=== PATIENT | male | born 1980 | race Caucasian/White ===

== ENCOUNTER 2022-11-13 14:34 | Emergency (ER) | payer OTHER, SELFPAY ==
--- NOTE | 2022-11-13 14:30 | DI.CT_ITS ---
Exam(s) CT HEAD CERVICAL SPINE WO EXAM: CT HEAD CERVICAL SPINE WO CLINICAL HISTORY: fall, pain. TECHNIQUE: Imaging Protocol: Axial computed tomography images with coronal and sagittal reformatted images were created and reviewed COMPARISON: No exams were available for comparison FINDINGS: CT Head: Ventricles and Extra axial spaces: Normal in size and morphology for the patient's age. Hemorrhage: None. Cerebral parenchyma: Normal. Midline shift: None. Brainstem/Cerebellum: Normal. Calvarium: Normal. Visualized Paranasal sinuses/Mastoids: Clear. Soft Tissues: Unremarkable. CT Cervical Spine: Bones: No acute fracture or subluxation. Mild degenerative changes are seen in the cervical spine. Soft Tissues: Unremarkable. Lung Apices: Clear. IMPRESSION: 1. No acute intracranial process. 2. No acute fracture or subluxation in the cervical spine. RADIATION DOSE DELIVERED: 1,527.84mGy.cm Total DLP DATA REPOSITORY: All CT scans at this facility are submitted to the National Radiology Data Registry (NRDR) Dose Index Registry (DIR) with the [employer] (ACR). RADIATION OPTIMIZATION: All CT scans at this facility use at least one of these dose optimization te chniques: automated exposure control; mA and/or kV adjustment per patient size (includes targeted exa ms where dose is matched to clinical indication); or iterative reconstruction.
[2022-11-13 14:38] VITALS: BP 143/79; PULSE 97; RESP 15; TEMP 36.9; O2SAT 99
--- NOTE | 2022-11-13 14:44 | ED.GENADUL_ITS ---
Discharge Plan Disposition Patient Disposition: Home Condition: Stable Discharge Details Chief Complaint: Trauma Clinical Impression: Concussion, Blunt head trauma Primary Care Provider: Morelia Urrutia ED Provider: Donte Sandoval Discharge Instructions Instructions: Concussion (ED) Additional Instructions: your cat scan did not show any concerning findings at this time follow up with your primary care provider within 1 week if you feel more ill, have severe worsening pain or difficulty breathing return to the emergency department Medical Decision Making 42 yo male who denies chronic medical problems who comes in with ems after a fall snowboarding. HE wasn't wearing a helmet and states he normally doesn't wear a helmet. He apparently fell backwards while snowboarding and hit his head on the ground, no reported loc from bystanders per ems. HE arrives conscious, answering his name where he is and year but is not able to provide detail on the fall. HE asks questions repeatedly despite them being answered numerous times. HE has no signs of trauma to the head, perrl, eomi, no midline c spine tenderness, no chest/abd/back tenderness and moving all extremities with good strength and normal rom. Suspect concussion based on his repetitive questions he asks, will obtain ct head and c spine and reassess. imaging unremarkable, pt stable with some improvement as he can now remember falling, states he was going backwards looking up at his daughter when he caught an edge and fell back. HE has no new pain, no midline c spine tenderness with full rom so c collar removed. Discussed with him and , advised likely concussion, will have him f/u with his pcp and return precautions given Differential Diagnosis Differential Diagnosis: concussion, tbi Imaging Data Radiologic Study: Attestation: I personally reviewed and interpreted this imaging study as follows: Imaging: CT Scan Radiologist's impression: no acute findings HPI General Mode of arrival: EMS . Date/Time Provider Initiated Documentation: 11/13/22 14:43 . Information obtained by: patient and EMS . History of Present Illness 42 year old M presents to the emergency department with the chief complaint of fall snowboarding, headache, described as moderate, and it has been constant. No relieving factors improve symptom(s), No exacerbating factors reported . Patient notes denies chest pain, fever/chills and nausea/vomiting. Patient did receive the following treatments prior to arrival, none General Stated Complaint: Trauma MATHIEU: 3 Review of Systems All systems reviewed & are unremarkable except as noted in HPI and below Constitutional Constitutional: Denies chills, Denies fever(s) and Denies weakness Cardiovascular Cardiovascular: Denies chest pain and Denies dyspnea Respiratory Respiratory: Denies cough and Denies dyspnea Gastrointestinal Gastrointestinal: Denies abdominal pain, Denies nausea and Denies vomiting Genitourinary Genitourinary: Denies dysuria Musculoskeletal Musculoskeletal: Denies joint swelling Integumentary/Breasts Skin/Breast: Denies rash Neurologic Neurologic: Denies weakness PFSH All Active Problems (Updated 11/13/22 @ 15:44 by Donte Sandoval MD) Concussion (Acute) Blunt head trauma (Acute) Social History Smoking/Tobacco Use Status: Never Smoking risk assessment performed?: Yes Do you feel safe at home: Yes Do you feel safe in your relationship?: Yes Exam Const General: no acute distress Orientation: alert HENMT Head: normal to inspection Ears: external ears normal General nose exam: external nose normal Mouth: moist mucous membranes Eyes General: appearance normal, both eyes and all related structures Pupils: PERRL EOM: EOM intact bilaterally Neck Neck: normal visual inspection, no lymphadenopathy and trachea midline Chest Chest: normal inspection of the chest and no tenderness Resp Effort & Inspection: normal respiratory effort and able to speak in complete sentences Auscultation: clear to auscultation bilaterally Cardio Rate: regular rate Heart Sounds: no murmurs GI Palpation: soft and nontender Back/Spine/Pelvis Back: no CVA tenderness Thoracic/Lumbar Spine: No thoracic spinal tenderness and No lumbar spinal tenderness Skin General skin exam: no rashes or lesions noted Neuro General: patient alert Extrem General: normal to inspection Psych Mental Status: mental status grossly normal Course Vital Signs Vital signs: Vital Signs Temperature 36.9 C 11/13/22 14:38 Pulse 97 H 11/13/22 14:38 Respiratory Rate 15 11/13/22 14:38 Blood Pressure 143/79 H 11/13/22 14:38 Pulse Oximetry 99 11/13/22 14:38 Temperature 36.9 C 11/13/22 14:38 Temperature Source Tympanic 11/13/22 14:38 Pulse 97 H 11/13/22 14:38 Respiratory Rate 15 11/13/22 14:38 Blood Pressure 143/79 H 11/13/22 14:38 Blood Pressure Position Sitting 03/19/23 14:38 Pulse Oximetry 99 11/13/22 14:38 Oxygen Delivery Method Room Air 11/13/22 14:38 Oxygen Flow Rate 0 11/13/22 14:38 Pain Level 2 11/13/22 14:38
[2022-11-13] MEDS: Acetaminophen 500 MG TAB 1000 MG PO (14:54)
--- NOTE | 2022-11-13 15:36 | DI.VRAD_ITS ---
PROCEDURE INFORMATION: Exam: CT Head Without Contrast Exam date and time: 11/13/2022 3:10 PM Age: 42 years old Clinical indication: Injury or trauma; Other: Fall/ pain; Other: Fall/pain; Injury date: 3180930 TECHNIQUE: Imaging protocol: Computed tomography of the head without contrast. COMPARISON: No relevant prior studies available. FINDINGS: Brain: Normal. No hemorrhage. Unremarkable white matter. No mass effect. Cerebral ventricles: No ventriculomegaly. Paranasal sinuses: Visualized sinuses are unremarkable. No fluid levels. Mastoid air cells: Visualized mastoid air cells are well aerated. Bones/joints: Unremarkable. No acute fracture. Soft tissues: Unremarkable. IMPRESSION: No acute intracranial abnormality. PROCEDURE INFORMATION: Exam: CT Cervical Spine Without Contrast Exam date and time: 11/13/2022 3:10 PM Age: 42 years old Clinical indication: Injury or trauma; Other: Fall/ pain; Other: Fall/pain; Injury date: 3180930 TECHNIQUE: Imaging protocol: Computed tomography of the cervical spine without contrast. COMPARISON: No relevant prior studies available. FINDINGS: Bones/joints: There is no evidence of acute fracture.There is no evidence of malalignment or dislocation. Minimal posterior osteophyte formation at C5 and C6 Lungs: Lung apices are normal. Soft tissues: Unremarkable. IMPRESSION: There is no evidence of acute fracture.There is no evidence of malalignment or dislocation. Dictated and Authenticated by: Ruben Unger MD. Ordering:ATIF Kent MD
[2022-11-13 16:19] VITALS: BP 136/81; PULSE 82; RESP 18; O2SAT 97
--- OUTSIDE RECORDS SUMMARY | 2022-11-13 16:42 | XMS_ITS ---
Author Name ADAMSPACO PENNINGTON Address [address] [place] [address] Organization [facility] Address [address] [place] [address] Care Team Providers Care Ballistics Expert Name Role Phone PACO ADAMS Unavailable [phone] PROBLEMS No Known Problems ALLERGIES No Known Allergies ENCOUNTERS Encounter Location Date Diagnosis [address] [address] December, Encounter for general adult medical examination without abnormal findings Z00.00 and Pain in right shoulder M25.[address] [address] December, [address] [address] Nov, Encounter for general adult medical examination without abnormal findings Z00.[address] [address] Nov, Encounter for general adult medical examination without abnormal findings Z00.00 and Acute abdomen R10.[address] [address] Nov, [address] [address] Nov, Unspecified abdominal pain R10.9 and Abnormal results of thyroid function studies R94.[address] [address] 08 May, 2019 Painful micturition, unspecified R30.9 [facility] [address] [facility] [place] [address] May, Dysuria R30.[address] [place] [address] Feb, Insect bite (nonvenomous), right lower leg, initial encounter S80.861A [facility] [address] [facility] [place] [address] Nov, Encounter for general adult medical examination without abnormal findings Z00.00 and Encounter for immunization Z23 [address] [place] [address] Nov, Encounter for general adult medical examination without abnormal findings Z00.00 IMMUNIZATIONS Vaccine Route Administration Date Status Tdap-Adult IM Intramuscular December 24, 2018 Administe susan SOCIAL HISTORY Never Assessed REASON FOR REFERRAL FUNCTIONAL STATUS PLAN OF CARE Activity Details VITAL SIGNS Temperature 97.5 degrees Fahrenheit Temperature 97.7 degrees Fahrenheit Temperature 97.6 degrees Fahrenheit Temperature 96.8 degrees Fahrenheit Temperature 97.1 degrees Fahrenheit Temperature 97.0 degrees Fahrenheit Temperature 98 degrees Fahrenheit 2019-03-05 Temperature 98.5 degrees Fahrenheit Heart Rate 81 /min 2021-12-27 Heart Rate 60 /min 2020-12-22 Heart Rate 97 /min 2019-12-24 Heart Rate 92 /min 2019-12-09 Heart Rate 96 /min 2019-06-04 Heart Rate 72 /min 2019-05-28 Heart Rate 85 /min 2019-03-05 Heart Rate 68 /min 2018-12-18 Height 70 in 2021-12-27 Height 70 in 2020-12-22 Height 70 in 2019-12-24 Height 70 in 2019-12-09 Height 70 in 2019-06-04 Height 70 in 2019-05-28 Height 70 in 2019-03-05 Height 70 in 2018-12-18 Weight 220 lbs 2021-12-27 Weight 204 lbs 2020-12-22 Weight 221 lbs 2019-12-24 Weight 220 lbs 2019-12-09 Weight 220 lbs 2019-06-04 Weight 220 lbs 2019-05-28 Weight 211 lbs 2019-03-05 Weight 213 lbs 2018-12-18 BMI 31.56 kg/m2 2021-12-27 BMI 29.27 kg/m2 2020-12-22 BMI 31.71 kg/m2 2019-12-24 BMI 31.56 kg/m2 2019-12-09 BMI 31.56 kg/m2 2019-06-04 BMI 31.56 kg/m2 2019-05-28 BMI 30.27 kg/m2 2019-03-05 BMI 30.56 kg/m2 2018-12-18 Respiratory Rate 16 /min 2021-12-27 Respiratory Rate 16 /min 2020-12-22 Oximetry 98 % 2021-12-27 Oximetry 96 % 2020-12-22 Oximetry 98 % 2019-12-24 Oximetry 98 % 2019-12-09 Oximetry 96 % 2019-06-04 Oximetry 98 % 2019-05-28 Oximetry 98 % 2019-03-05 Oximetry 97 % 2018-12-18 Blood pressure systolic 116 mm Hg Blood pressure diastolic 70 mm Hg 2021-12 MEDICATIONS No Known Medications PROCEDURES Procedure Date Ordered Result Body Site venipuncture December 27, 2021 venipuncture December 24, 2018 TDAP VAC Adult December 24, 2018 venipuncture December 09, 2019 URINALYSIS, AUTO, W/O SCOPE December 22, 2020 URINALYSIS, AUTO, W/O SCOPE December 24, 2019 URINALYSIS, AUTO, W/O SCOPE Jun 04, 2019 URINALYSIS, AUTO, W/O SCOPE December 24, 2018 immun. ADMIN December 24, 2018 VENIPUNCT, ROUTINE* December 22, 2020 RESULTS Name Result Date Reference Range COMPREHENSIVE METABOLIC PANEL 2021-12-27 ALBUMIN 4.7 3.6-5.1 ALBUMIN/GLOBULIN RATIO 1.8 1.0-2 .5 ALKALINE PHOSPHATASE 37 36-130 ALT 30 9-46 AST 32 10-40 BILIRUBIN, TOTAL 0.8 0.2-1.2 BUN/CREATININE RATIO NOT APPLICABLE 6-22 CALCIUM 9.5 8.6-10.3 CARBON DIOXIDE 27 20-32 CHLORIDE 102 98-110 CREATININE 1.07 0.60-1.35 eGFR 101 >OR = 60 eGFR NON-AFR. GERMAN 87 >OR = 60 GLOBULIN 2.6 1.9-3.7 GLUCOSE 104 65-99 POTASSIUM 3.8 3.5-5.3 PROTEIN, TOTAL 7.3 6.1-8.1 SODIUM 137 135-146 UREA NITROGEN (BUN) 19 7-25 TSH, 3RD GENERATION W/REFLEX TO FT4 12-27 TSH W/REFLEX TO FT4 3.33 0.40-4.5 0 CBC (INCLUDES DIFF/PLT) 2021-12-27 ABSOLUTE BASOPHILS 23 0-200 ABSOLUTE EOSINOPHILS 63 15-500 ABSOLUTE LYMPHOCYTES 2354 850-390 0 ABSOLUTE MONOCYTES 450 200-950 ABSOLUTE NEUTROPHILS 2810 1500-78 00 BASOPHILS 0.4 EOSINOPHILS 1.1 HEMATOCRIT 43.6 38.5-50.0 HEMOGLOBIN 14.7 13.2-17.1 LYMPHOCYTES 41.3 MCH 29.4 27.0-33.0 MCHC 33.7 32.0-36.0 MCV 87.2 80.0-100.0 MONOCYTES 7.9 MPV 10.0 7.5-12.5 NEUTROPHILS 49.3 PLATELET COUNT 252 140-400 RDW 13.5 11.0-15.0 RED BLOOD CELL COUNT 5.00 4.20-5. 80 WHITE BLOOD CELL COUNT 5.7 3.8-1 0.8 LIPID PANEL 2021-12-27 CHOL/HDLC RATIO 3.6 <5.0 CHOLESTEROL, TOTAL 183 <200 HDL CHOLESTEROL 51 >OR = 40 LDL-CHOLESTEROL 114 NON HDL CHOLESTEROL 132 <130 TRIGLYCERIDES 84 <150 COMPREHENSIVE METABOLIC PANEL 2020-12-22 ALBUMIN 4.6 3.6-5.1 ALBUMIN/GLOBULIN RATIO 1.8 1.0-2 .5 ALKALINE PHOSPHATASE 38 36-130 ALT 25 9-46 AST 26 10-40 BILIRUBIN, TOTAL 0.8 0.2-1.2 BUN/CREATININE RATIO NOT APPLICABLE 6-22 CALCIUM 9.7 8.6-10.3 CARBON DIOXIDE 25 20-32 CHLORIDE 104 98-110 CREATININE 0.94 0.60-1.35 eGFR 119 >OR = 60 eGFR NON-AFR. GERMAN 102 >OR = 60 GLOBULIN 2.6 1.9-3.7 GLUCOSE 90 65-99 POTASSIUM 4.1 3.5-5.3 PROTEIN, TOTAL 7.2 6.1-8.1 SODIUM 136 135-146 UREA NITROGEN (BUN) 18 7-25 TSH, 3RD GENERATION W/REFLEX TO FT4 12-22 TSH W/REFLEX TO FT4 1.90 0.40-4.5 0 CBC (INCLUDES DIFF/PLT) 2020-12-22 ABSOLUTE BASOPHILS 38 0-200 ABSOLUTE EOSINOPHILS 32 15-500 ABSOLUTE LYMPHOCYTES 2860 850-390 0 ABSOLUTE MONOCYTES 435 200-950 ABSOLUTE NEUTROPHILS 2936 1500-78 00 BASOPHILS 0.6 EOSINOPHILS 0.5 HEMATOCRIT 43.8 38.5-50.0 HEMOGLOBIN 14.6 13.2-17.1 LYMPHOCYTES 45.4 MCH 29.3 27.0-33.0 MCHC 33.3 32.0-36.0 MCV 88.0 80.0-100.0 MONOCYTES 6.9 MPV 9.9 7.5-12.5 NEUTROPHILS 46.6 PLATELET COUNT 242 140-400 RDW 13.3 11.0-15.0 RED BLOOD CELL COUNT 4.98 4.20-5. 80 WHITE BLOOD CELL COUNT 6.3 3.8-1 0.8 LIPID PANEL 2020-12-22 CHOL/HDLC RATIO 3.5 <5.0 CHOLESTEROL, TOTAL 187 <200 HDL CHOLESTEROL 53 >OR = 40 LDL-CHOLESTEROL 113 NON HDL CHOLESTEROL 134 <130 TRIGLYCERIDES 107 <150 CULTURE, URINE, ROUTINE 2019-12-24 CULTURE, URINE, ROUTINE SEE NOTE URINALYSIS, COMPLETE 2019-12-24 APPEARANCE CLEAR CLEAR BACTERIA NONE SEEN NONE SEEN BILIRUBIN NEGATIVE NEGATIVE COLOR YELLOW YELLOW GLUCOSE NEGATIVE NEGATIVE HYALINE CAST NONE SEEN NONE SEEN KETONES NEGATIVE NEGATIVE LEUKOCYTE ESTERASE NEGATIVE NEGATIVE NITRITE NEGATIVE NEGATIVE OCCULT BLOOD NEGATIVE NEGATIVE PH 7.0 5.0-8.0 PROTEIN NEGATIVE NEGATIVE RBC NONE SEEN < OR = 2 SPECIFIC GRAVITY 1.019 1.001-1.035 SQUAMOUS EPITHELIAL CELLS NONE SEEN < OR = 5 WBC NONE SEEN < OR = 5 XR ABDOMEN 2 VIEWS 2019-12-09 COMPREHENSIVE METABOLIC PANEL 2019-12-09 ALBUMIN 4.5 3.6-5.1 ALBUMIN/GLOBULIN RATIO 1.6 1.0-2 .5 ALKALINE PHOSPHATASE 42 36-130 ALT 27 9-46 AST 25 10-40 BILIRUBIN, TOTAL 0.7 0.2-1.2 BUN/CREATININE RATIO NOT APPLICABLE 6-22 CALCIUM 9.5 8.6-10.3 CARBON DIOXIDE 27 20-32 CHLORIDE 103 98-110 CREATININE 0.93 0.60-1.35 eGFR 121 >OR = 60 eGFR NON-AFR. GERMAN 105 >OR = 60 GLOBULIN 2.8 1.9-3.7 GLUCOSE 95 65-99 POTASSIUM 4.6 3.5-5.3 PROTEIN, TOTAL 7.3 6.1-8.1 SODIUM 138 135-146 UREA NITROGEN (BUN) 17 7-25 TSH, 3RD GENERATION W/REFLEX TO FT4 12-08 TSH W/REFLEX TO FT4 2.22 0.40-4.5 0 CULTURE, URINE, ROUTINE 2019-12-09 CULTURE, URINE, ROUTINE SEE NOTE URINALYSIS, COMPLETE 2019-12-09 APPEARANCE CLEAR CLEAR BACTERIA NONE SEEN NONE SEEN BILIRUBIN NEGATIVE NEGATIVE COLOR YELLOW YELLOW GLUCOSE NEGATIVE NEGATIVE HYALINE CAST NONE SEEN NONE SEEN KETONES NEGATIVE NEGATIVE LEUKOCYTE ESTERASE NEGATIVE NEGATIVE NITRITE NEGATIVE NEGATIVE OCCULT BLOOD NEGATIVE NEGATIVE PH 6.5 5.0-8.0 PROTEIN NEGATIVE NEGATIVE RBC NONE SEEN < OR = 2 SPECIFIC GRAVITY 1.018 1.001-1.035 SQUAMOUS EPITHELIAL CELLS NONE SEEN < OR = 5 WBC NONE SEEN < OR = 5 CBC (INCLUDES DIFF/PLT) 2019-12-09 ABSOLUTE BASOPHILS 32 0-200 ABSOLUTE EOSINOPHILS 32 15-500 ABSOLUTE LYMPHOCYTES 2325 850-390 0 ABSOLUTE MONOCYTES 428 200-950 ABSOLUTE NEUTROPHILS 3484 1500-78 00 BASOPHILS 0.5 EOSINOPHILS 0.5 HEMATOCRIT 45.3 38.5-50.0 HEMOGLOBIN 15.4 13.2-17.1 LYMPHOCYTES 36.9 MCH 28.9 27.0-33.0 MCHC 34.0 32.0-36.0 MCV 85.2 80.0-100.0 MONOCYTES 6.8 MPV 9.7 7.5-12.5 NEUTROPHILS 55.3 PLATELET COUNT 235 140-400 RDW 13.6 11.0-15.0 RED BLOOD CELL COUNT 5.32 4.20-5. 80 WHITE BLOOD CELL COUNT 6.3 3.8-1 0.8 CULTURE, URINE, ROUTINE 2019-05-28 CULTURE, URINE, ROUTINE SEE NOTE URINALYSIS, COMPLETE 2019-05-28 APPEARANCE CLEAR CLEAR BACTERIA NONE SEEN NONE SEEN BILIRUBIN NEGATIVE NEGATIVE COLOR YELLOW YELLOW GLUCOSE NEGATIVE NEGATIVE HYALINE CAST NONE SEEN NONE SEEN KETONES NEGATIVE NEGATIVE LEUKOCYTE ESTERASE NEGATIVE NEGATIVE NITRITE NEGATIVE NEGATIVE OCCULT BLOOD NEGATIVE NEGATIVE PH 7.5 5.0-8.0 PROTEIN NEGATIVE NEGATIVE RBC NONE SEEN < OR = 2 SPECIFIC GRAVITY 1.004 1.001-1.035 SQUAMOUS EPITHELIAL CELLS NONE SEEN < OR = 5 WBC NONE SEEN < OR = 5 COMPREHENSIVE METABOLIC PANEL 2018-12-24 ALBUMIN 4.5 3.6-5.1 TSH, 3RD GENERATION W/REFLEX TO FT4 12-24 T4, FREE 1.0 0.8-1.8 CBC (INCLUDES DIFF/PLT) 2018-12-24 LIPID PANEL 2018-12-24 CHOL/HDLC RATIO 3.6 <5.0 REASON FOR VISIT annual physical, annual physical, annual physical, need new ins, annual physical, Annual Physical, update, private area infection, urine recheck, ? urinary pain , tick bite, fasting labs, UA, Tdap inj, New pt/annual physical Insurance Providers Health Insurance Type Health Plan Insurance Address Health Plan Insurance Phone Health Plan Insurance Name Health Plan Coverage Dates Member ID Patient Relationship to Subscriber Patient Address Patient Phone Patient Name Patient Date of Subscriber ID Subscriber Name Subscriber Date of Group No [employer] [address] [place] [phone] [employer] self Dimitrios Brasseur [id number] [employer] [place] [address] [place] [address] [employer] [place] self Dimitrios Brasseur [id number] [employer] [address] [place] [address] [employer] self Dimitrios Brasseur [id number]
== END 2022-11-13 16:21 | disposition home or self-care (01) ==
LOC: ER 16:41
PROVIDERS: Emergency Provider Emergency Medicine; PCP General Practice
DX: S06.0X0A Concussion without loss of consciousness, initial encounter (principal); S09.8XXA Other specified injuries of head, initial encounter; V00.311A Fall from snowboard, initial encounter
CPT/HCPCS: 99284; 70450; 72125